=== PATIENT | female | born 2000 ===

== ENCOUNTER 2024-10-27 11:50 | Outpatient (CLI) | payer OTHER | END 2024-10-27 11:54 | disposition home or self-care (01) | LOC: PRENATAL 11:50 | PROVIDERS: ATTEND Obstetrics & Gynecology Maternal & Fetal Medicine | DX: O44.00 Complete placenta previa NOS or without hemorrhage, unspecified trimester (principal); Z3A.20 20 weeks gestation of pregnancy ==

== ENCOUNTER 2025-01-24 15:23 | Outpatient (CLI) | payer OTHER | END 2025-01-24 15:27 | disposition home or self-care (01) | LOC: PRENATAL 15:23 | PROVIDERS: ATTEND Obstetrics & Gynecology Maternal & Fetal Medicine | DX: O26.843 Uterine size-date discrepancy, third trimester (principal); O36.8130 Decreased fetal movements, third trimester, not applicable or unspecified; Z3A.33 33 weeks gestation of pregnancy ==